=== PATIENT | female | born 1990 | race Caucasian/White ===

== ENCOUNTER 2017-02-19 19:04 | Emergency (ER) | payer OTHER, MEDICAID ==
[2017-02-19] MEDS ORDERED: BIRTH CONTROL PO (19:32)
== END 2017-02-19 21:29 ==
LOC: EDMED 19:04
PROC: 0HQGXZZ Repair Left Hand Skin, External Approach (ICD-10-PCS; principal; 2017-02-19)
DX: S61.211A Laceration without foreign body of left index finger without damage to nail, initial encounter (principal); W45.8XXA Other foreign body or object entering through skin, initial encounter; Y92.009 Unspecified place in unspecified non-institutional (private) residence as the place of occurrence of the external cause